=== PATIENT | female | born 1945 ===

== ENCOUNTER → 2022-06-01 | Outpatient (CLI) | payer SELFPAY ==
[2022-06-01 19:52] LABS: Hematocrit 39.2 % (33.0-51.0); Hemoglobin 12.9 g/dL (11.5-16.0); Mean Corpuscular HGB 30.1 pg (26.0-34.0); Mean Corpuscular HGB Conc 32.9 g/dL (31.5-36.5); Mean Corpuscular Volume 92 fL (80-100); Mean Platelet Volume 11.6 fL (9.1-12.4); Platelet Count 143 K/mm3 (150-400); RDW Coefficient Variation 12.9 % (11.7-14.2); RDW Standard Deviation 43.8 fL (35.1-46.3); Red Blood Cell Count 4.28 M/mm3 (3.80-5.20); White Blood Cell Count 3.41 K/mm3 (4.00-11.30)
[2022-06-01 21:10] LABS: Free Thyroxine 1.78 ng/dL (0.70-1.60)
[2022-06-01 21:16] LABS: BASOPHILS PERCENT MAN 0 % (0-2); EOSINOPHILS PERCENT MAN 0 % (0-6); LYMPHOCYTES % ATYPICAL MANUAL 7 % (0-0); LYMPHOCYTES ABSOLUTE MAN 1.87 K/mm3 (0.84-5.20); LYMPHOCYTES PERCENT MAN 48 % (21-46); MONOCYTES ABSOLUTE MAN 0.17 K/mm3 (0.16-1.47); MONOCYTES PERCENT MAN 5 % (4-13); NEUTROPHILS ABSOLUTE MAN 1.36 K/mm3 (1.96-9.15); SEG NEUTROPHILS PERCENT MAN 40 % (41-73); TOTAL CELLS COUNTED 100
[2022-06-01 21:28] LABS: Albumin, Blood 3.2 g/dL (3.4-5.0); Albumin/Globulin Ratio 0.9 (0.8-1.8); Bilirubin, Total 0.2 mg/dL (0.1-1.0); Bun/Creatinine Ratio 28.1 (12.0-20.0); Calcium, Blood 9.8 mg/dL (8.5-10.1); Creatinine, Blood 1.14 mg/dL (0.40-1.00); Globulin, Blood 3.4 g/dL (2.2-4.0); Thyroid Stimulating Hormone 0.84 uIU/mL (0.360-4.800); Total Protein, Blood 6.6 g/dL (6.4-8.2)
[2022-06-02 11:56] LABS: International Normalized Ratio 1.3; Prothrombin Time Results 13.4 Sec (9.7-11.5)
== END | disposition home or self-care (01) ==
LOC: LAB SHORT 13:40
PROVIDERS: Family Medicine
DX: I48.91 Unspecified atrial fibrillation (principal); I95.9 Hypotension, unspecified; E03.9 Hypothyroidism, unspecified
CPT/HCPCS: 80053; 84439; 84443; 85025; 85610

== ENCOUNTER 2022-07-03 08:00 | Inpatient (IN) | payer MEDICARE ==
[~2022-07-03] VITALS: Wt 73.2 kg
[2022-07-03] MEDS ORDERED: ASPI81CH PO (11:23)
[2022-07-03] MEDS ORDERED: EUTHYROX88 MCG PO (11:23)
[2022-07-03] MEDS ORDERED: Crestor20 MG PO (11:23)
[2022-07-03] MEDS ORDERED: ENTRESTO 24 MG1 EACH PO (11:23)
[2022-07-03] MEDS ORDERED: MONT10T PO (11:24)
[2022-07-03] MEDS ORDERED: MIRT15 PO (11:24)
[2022-07-03] MEDS ORDERED: METO25ER PO (11:25)
[2022-07-03] MEDS ORDERED: WARF5 PO (11:25)
--- NOTE | 2022-07-03 12:12 | NUR ---
ADMIT: PATIENT ARRIVAL TO PCU 03 AT 1032. ALERT AND ORIENTED X4. DENIES N/T. 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 PERRLA. BEDREST WITH BATHROOM ASSISTANCE. UP TO BSC UPON ARRIVAL AND VOIDING WNL. OVERALL WEAK GAIT, PATIENT USING CANE AT BASELINE. BED ALARM ON FOR SAFETY. ON 2L NASAL CANNULA SATING 95-100%. LUNGS SOUDING CLEAR IN UPPER LOBES AND FINE CRACKLES HEARD IN BASES. EVERYDAY SMOKER. HARSH/HACKING COUGH. COMPLAINS OF SOB RELATED TO CP. ROOM AIR AT BASELINE. TELE SHOWING SINUS RHYTHM WITH HR 70'S. EKG DONE UPON ARRIVAL. HISTORY OF [employer] PACER IN 2021. SEE CHART FOR PAPERWORK. BP STABLE. HEPARIN GTT INFUSING PER TRANSFER PAPER ORDERS. PHARMACY NOTIFIED AND ORDERS IN PLACE. NS INFUSING PER DR. LUNDBERG ORDERS. DR. LUNDBERG AT BEDSIDE AND PLAN FOR ANGIOGRAM THIS AFTERNOON. ECHO ORDERS IN PLACE. NPO AT THIS TIME. DENIES ABDOMINAL PAIN/NAUSEA. MED REC AND ADMISSION COMPLETED. CALL LIGHT IN REACH. WILL CONTINUE TO MONITOR.
--- NOTE | 2022-07-03 12:21 | NUR ---
PATIENT TO HEART CENTER AT THIS TIME.
--- NOTE | 2022-07-03 14:22 | NUR ---
PATIENT RETURNS TO PHOTO MASK PROCESSOR AT THIS TIME. POST VITALS IN PROGRESS. LEFT RADIAL SITE WITH 12ML TR BAND. ARM BOARD IN PLACE. SITE WNL. REMAINS SOFT/NONTENDER. NO SIGNS OF BLEEDING. PATIENT EDUCATED ON POST RADIAL SITE PRECAUTIONS. POST PHOTO MASK PROCESSOR ORDERS IN PLACE. CARDIAC DIET. REMAINS ON 2L NASAL CANNULA SATING 93%. CONTINUES TO HAVE MOIST SOUNDING COUGH. UP TO BSC TO VOID. PATIENT IN CONTACT WITH FAMILY VIA PHONE. DDIMER LAB DRAWN AT THIS TIME.
--- NOTE | 2022-07-03 15:50 | NUR ---
ECHO BEING DONE AT THIS TIME
--- NOTE | 2022-07-03 17:52 | NUR ---
SHIFT SUMMARY: NO ACUTE CHANGES POST ANGIO. IMPROVED CHEST PAIN/PRESSURE. PATIENT RATES 2-4/10. POST VITALS COMPLETE AND STABLE. TR BAND REMOVED AT 1750. TEGADERM IN PLACE WELL ARMBOARD. SCANT DRAINAGE THAT REMAINS UNCHANGED. EATING SMALL AMOUNTS. REMAINS ON 1L NASAL CANNULA SATING LOW-MID 90'S. SLEEPING MOST OF THE AFTERNOON POST ANGIO. UP TO BS TO VOID WITH ASSISTANCE. WILL CONTINUE TO MONITOR AND REPORT OFF.
[2022-07-04 04:35] LABS: BASOPHILS ABSOLUTE AUTO 0.05 K/mm3 (0.00-0.23); BASOPHILS PERCENT AUTO 1 % (0-2); EOSINOPHILS ABSOLUTE AUTO 0.05 K/mm3 (0.00-0.68); EOSINOPHILS PERCENT AUTO 1 % (0-6); Hemoglobin 11.4 g/dL (11.5-16.0); IMMATURE GRAN ABSOLUTE AUTO 0.02 K/mm3 (0.00-0.10); IMMATURE GRAN PERCENT AUTO 0 % (0-1); LYMPHOCYTES ABSOLUTE AUTO 1.19 K/mm3 (0.84-5.20); LYMPHOCYTES PERCENT AUTO 20 % (21-46); MONOCYTES ABSOLUTE AUTO 0.58 K/mm3 (0.16-1.47); MONOCYTES PERCENT AUTO 10 % (4-13); Mean Corpuscular HGB 29.6 pg (26.0-34.0); Mean Corpuscular HGB Conc 32.6 g/dL (31.5-36.5); Mean Corpuscular Volume 91 fL (80-100); Mean Platelet Volume 10.3 fL (9.1-12.4); NEUTROPHILS ABSOLUTE AUTO 4.16 K/mm3 (1.96-9.15); NEUTROPHILS PERCENT AUTO 69 % (41-73); Platelet Count 180 K/mm3 (150-400); RDW Coefficient Variation 13.2 % (11.7-14.2); RDW Standard Deviation 43.8 fL (35.1-46.3); Red Blood Cell Count 3.85 M/mm3 (3.80-5.20); White Blood Cell Count 6.05 K/mm3 (4.00-11.30)
[2022-07-04 05:01] LABS: Bun/Creatinine Ratio 13.7 (12.0-20.0); Calcium, Blood 8.4 mg/dL (8.5-10.1); Creatinine, Blood 1.02 mg/dL (0.40-1.00)
--- NOTE | 2022-07-04 06:48 | NUR ---
SHIFT [facility] PT REMAINS A&O X4. PT SLEPT MOST OF THE SHIFT, PT DOES INTERACT AND RESPOND TO QUESTIONS APPROPRIATELY. VSS; ALTHOUGH SBP IS STILL SOFT RANGING FROM 93 - 98. PT DENIES DIZZINESS OR LIGHTHEADNESS. PT CURRENTLY ON 1 L VIA NC, PT SPO2 MAINTAINED 91 - 94%. PT DENIES SOB, CP OR PRESSURE THROUGHOUT SHIFT. L RADIAL SITE REMAINED WNL, SCANT AMOUNT OF OOZING - NO CHANGE FROM PREVIOUS SHIFT. ARM BOARD IN PLACE. PT DENIES TENDERNESS OR PAIN, NO REDNESS NOTED. ABSENT OF HEMATOMA, DISCOLORATION, NUMBNESS OR TINGLING. PT CONTINUES TO HAVE MOIST COUGH W/OUT SPUTUM. NO ACUTE CHANGES THROUGHOUT SHIFT. PT DID NOT VOID AND CONTINUED TO DENY NEED TO GET UP TO USE RESTROOM. WILL LET DAYSHIFT RN KNOW. PT D-DIMER RESULTS WERE SLIGHTLY ELEVATED AT 0.58; HOSPITALIST NOTIFIED. NO NEW ORDERS. PT IS STILL RESTING IN BED. CALL LIGHT IN REACH
[2022-07-04] MEDS ORDERED: CLOP75 PO (11:37)
[2022-07-04] MEDS ORDERED: ELIQUIS5 M2 PO (11:38)
--- NOTE | 2022-07-04 13:14 | NUR ---
UPDATE PLAN TO DISCHARGE PT TODAY. PT BP SOFT WITH OCCASIONAL LOW MAP, BP MONITORED Q15 MINUTES. DR. Levy WAS CONTACTED REGARDING THIS. PT WAS AMBULATED AROUND THE ROOM AND DENIES ANY DIZZINESS OR LIGHTHEADEDNESS, WITH NO DROP IN BP AFTER AMBULATION. PT MOST RECENT BP 104/52 WITH A MAP OF 69. DR. Levy UPDATED AND PLAN IS STILL TO DC PATIENT.
--- NOTE | 2022-07-04 15:21 | NUR ---
DISCHARGE PT PRESCRIPTIONS CALLED INTO [facility]. PT D/C'D AND TAKEN OUT TO [facility] IN WHEELCHAIR TAKEN BY MILTON VELÁSQUEZ @ APPROX 1515. PT A/O X4. VSS. AMEZQUITA.
== END 2022-07-04 15:14 | disposition home or self-care (01) | DRG 281 ==
LOC: PCU 08:00
PROVIDERS: Family Medicine; ADMIT Hospitalist
PROC: 4A023N7 Measurement of Cardiac Sampling and Pressure, Left Heart, Percutaneous Approach (ICD-10-PCS; principal; 2022-07-03)
PROC: B211YZZ Fluoroscopy of Multiple Coronary Arteries using Other Contrast (ICD-10-PCS; 2022-07-03)
PROC: B215YZZ Fluoroscopy of Left Heart using Other Contrast (ICD-10-PCS; 2022-07-03)
PROC: B240ZZ3 Ultrasonography of Single Coronary Artery, Intravascular (ICD-10-PCS; 2022-07-03)
DX: I21.4 Non-ST elevation (NSTEMI) myocardial infarction (principal); I13.0 Hypertensive heart and chronic kidney disease with heart failure and stage 1 through stage 4 chronic kidney disease, or unspecified chronic kidney disease; I50.42 Chronic combined systolic (congestive) and diastolic (congestive) heart failure; M47.16 Other spondylosis with myelopathy, lumbar region; I25.10 Atherosclerotic heart disease of native coronary artery without angina pectoris; F17.210 Nicotine dependence, cigarettes, uncomplicated; E78.5 Hyperlipidemia, unspecified; I24.9 Acute ischemic heart disease, unspecified; E03.9 Hypothyroidism, unspecified; I25.5 Ischemic cardiomyopathy; I48.0 Paroxysmal atrial fibrillation; J44.9 Chronic obstructive pulmonary disease, unspecified; I65.29 Occlusion and stenosis of unspecified carotid artery; N18.30 Chronic kidney disease, stage 3 unspecified; I45.9 Conduction disorder, unspecified; F32.A Depression, unspecified; I95.89 Other hypotension; G47.00 Insomnia, unspecified; M19.90 Unspecified osteoarthritis, unspecified site; R73.03 Prediabetes; Z95.5 Presence of coronary angioplasty implant and graft; Z95.0 Presence of cardiac pacemaker; I25.2 Old myocardial infarction; Z79.01 Long term (current) use of anticoagulants; Z79.899 Other long term (current) drug therapy; Z79.82 Long term (current) use of aspirin; Z98.49 Cataract extraction status, unspecified eye; Z79.51 Long term (current) use of inhaled steroids
CPT/HCPCS: 36415; 76937; 80048; 84484; 85025; 85347; 85379; 93005; 93010; 93306; 93458; 99152; 99153; A9270; C1769; C1887; C1894; J2250; J3010; J7030; J7050; Q9967

== ENCOUNTER → 2024-01-06 | Outpatient (CLI) | payer MEDICARE ==
[~2024-01-06] MED LIST: ASPI81CH PO; CLOP75 PO; Crestor20 MG PO; ELIQUIS5 M2 PO; ENTRESTO 24 MG1 EACH PO; EUTHYROX88 MCG PO; METO25ER PO; MIRT15 PO; MONT10T PO; WARF5 PO
== END ==
LOC: LAB 07:31 → LAB SHORT 07:31
DX: L82.1 Other seborrheic keratosis (principal)
CPT/HCPCS: 88305